=== PATIENT | female | born 1970 | race Caucasian/White ===

== ENCOUNTER → 2019-11-30 | Outpatient (REF) | payer BC | LOC: M LAB LCGH 12:36 | PROVIDERS: ATTEND Surgery | DX: K80.42 Calculus of bile duct with acute cholecystitis without obstruction (principal) ==

== ENCOUNTER → 2024-11-29 | Outpatient (CLI) | payer BC ==
[~2024-11-29] MED LIST: ISOVUE-370 76% 100ML VIAL As Ordered ONE
== END ==
LOC: M RAD 14:19
PROVIDERS: ATTEND Internal Medicine Nephrology
DX: R31.9 Hematuria, unspecified (principal); Z90.49 Acquired absence of other specified parts of digestive tract; N28.1 Cyst of kidney, acquired; K44.9 Diaphragmatic hernia without obstruction or gangrene; K57.30 Diverticulosis of large intestine without perforation or abscess without bleeding
CPT/HCPCS: 74178; Q9967

== ENCOUNTER → 2025-10-29 | Outpatient (CLI) | payer BC | LOC: M WHC 14:43 | PROVIDERS: ATTEND Nurse Practitioner Family | DX: R92.0 Mammographic microcalcification found on diagnostic imaging of breast (principal); R92.8 Other abnormal and inconclusive findings on diagnostic imaging of breast ==